=== PATIENT | female | born 1955 | race African-American/Black ===

== ENCOUNTER 2018-08-01 07:10 | Day surgery (SDC) | payer MEDICARE, MEDICAID ==
[~2018-08-01] VITALS: Ht 163.8 cm; Wt 73.5 kg
[~2018-08-01 07:10] MED LIST: ASPIRIN; CEPH-569; CLOB60CR4; CRESTOR PO; EXFORGE; FLUO15CR34; IBUP-1008; METFORMIN PO; POTASSIUM PO; SERT-112; SULF1TAB48; TRIA1TAB94
[2018-08-01] MEDS ORDERED: LACTATED RINGERS 1,000 ML IV SCH (08:25)
[2018-08-01] MEDS ORDERED: LOSA1TAB40 PO (08:44)
[2018-08-01] MEDS ORDERED: NIFE60TA64 PO (08:44)
[2018-08-01 08:50] LABS: BASOPHILS % 0.8 % (0.0-2.0); EOSINOPHILS % 2.3 % (0.0-5.0); HEMOGLOBIN. 9.8 g/dL (12.0-16.0); LYMPHOCYTES % 34.2 % (20.0-50.0); MEAN CORPUSCULAR HEMOGLOBIN 30.7 pg (28.0-32.0); MEAN CORPUSCULAR VOLUME 94.2 fL (81.0-99.0); MEAN PLATELET VOLUME 7.8 fl (7.4-10.4); MONOCYTES % 7.5 % (2.0-8.0); NEUTROPHILS % 55.2 % (40.0-76.0); PLATELET 264 x1000/uL (130-400); RED BLOOD CELL COUNT 3.19 mill/uL (4.2-5.4); RED CELL DISTRIBUTION WIDTH 16.4 % (11.6-14.6)
[2018-08-01 09:01] LABS: PARTIAL THROMBOPLASTIN TIME 25.7 sec (23.4-31.0); PROTHROMBIN TIME 9.8 sec (9.1-11.1)
[2018-08-01 09:22] LABS: HCG SCREEN INDETERMINATE
[2018-08-01 10:13] LABS: CLARITY URINE CLEAR (CLEAR); COLOR URINE YELLOW (YELLOW); KETONES URINE NEGATIVE (NEGATIVE); LEUKOCYTE ESTERASE URINE NEGATIVE (NEGATIVE); NITRITE URINE NEGATIVE (NEGATIVE); OCCULT BLOOD URINE NEGATIVE (NEGATIVE); PROTEIN URINE TRACE (NEGATIVE); SPECIFIC GRAVITY URINE 1.016 (1.005-1.030); UROBILINOGEN URINE 0.2 E.U./dL (0.2-1.0)
[2018-08-01 10:14] LABS: UCG SCREEN NEGATIVE
[2018-08-01] MEDS ORDERED: FERRIC SUBSULFATE SOLN 8GM TOP NR (10:30)
[2018-08-01] MEDS ORDERED: POTASSIUM IODIDE/IODINE 20ML TOP NR (10:30)
[2018-08-01] MEDS ORDERED: PROPOFOL 200MG/20ML VIAL IV ONE ×4 (11:04→11:49)
[2018-08-01] MEDS ORDERED: FENTANYL CITRATE/PF 50MCG/ML 2ML VIAL ONE (11:04)
[2018-08-01] MEDS ORDERED: LIDOCAINE HCL/PF 1% 10 MG/ML 5ML VIAL ONE (11:04)
[2018-08-01] MEDS ORDERED: VASOPRESSIN 20 UNIT/ML 1ML ONE (11:35)
[2018-08-01] MEDS ORDERED: ONDANSETRON HCL 4MG/2ML INJ IV PRN (13:15)
[2018-08-01] MEDS: FENTANYL CITRATE/PF 50MCG/ML 2ML VIAL IV PRN ×4 (13:36→14:27)
[2018-08-01 14:27] VITALS: BP 142/71
== END 2018-08-01 15:45 | disposition home or self-care (01) ==
LOC: OR 07:10
PROVIDERS: ATTEND Obstetrics & Gynecology Obstetrics
DX: N87.0 Mild cervical dysplasia (principal); I12.9 Hypertensive chronic kidney disease with stage 1 through stage 4 chronic kidney disease, or unspecified chronic kidney disease; E11.22 Type 2 diabetes mellitus with diabetic chronic kidney disease; N18.2 Chronic kidney disease, stage 2 (mild); F17.210 Nicotine dependence, cigarettes, uncomplicated; K21.9 Gastro-esophageal reflux disease without esophagitis; M19.90 Unspecified osteoarthritis, unspecified site; Z72.89 Other problems related to lifestyle; E78.00 Pure hypercholesterolemia, unspecified; Z98.42 Cataract extraction status, left eye; Z98.890 Other specified postprocedural states; Z79.82 Long term (current) use of aspirin; Z79.899 Other long term (current) drug therapy; Z88.8 Allergy status to other drugs, medicaments and biological substances; Z82.49 Family history of ischemic heart disease and other diseases of the circulatory system; Z83.3 Family history of diabetes mellitus
CPT/HCPCS: 36415; 57522; 80048; 81003; 81025; 82962; 84703; 85025; 85610; 85730; 88305; 88307; 93005; J2405; J2704; J3010; J3490